=== PATIENT | female | born 1955 | race Caucasian/White ===

== ENCOUNTER → 2017-09-30 | Day surgery (SDC) | payer OTHER ==
[~2017-09-30] MED LIST: LIDOCAINE 1% PF 2 ML VIAL. ID; LIDOCAINE 2% 100 MG/5 ML SYRINGE.; MIDAZOLAM HCL/PF 2 MG/2 ML VIAL. IV; PROPOFOL 40 ML IV; fentaNYL PF VIAL 100 MCG/2 ML VIAL IV
[2017-09-30] MEDS: IV RINGERS,LACTATED 1000ML 1,000 ML IV (07:53)
== END | disposition home or self-care (01) ==
LOC: SURG 07:19
DX: Z09 Encounter for follow-up examination after completed treatment for conditions other than malignant neoplasm (principal); D12.0 Benign neoplasm of cecum; K57.30 Diverticulosis of large intestine without perforation or abscess without bleeding; K64.0 First degree hemorrhoids; Z86.010 Personal history of colon polyps; Z98.51 Tubal ligation status; Z79.82 Long term (current) use of aspirin; I10 Essential (primary) hypertension
CPT/HCPCS: 45385; 88305; J2704

== ENCOUNTER → 2018-12-10 | Outpatient (CLI) | payer OTHER ==
[2017-09-30 08:50] VITALS: BP 128/74
[~2018-12-10] MED LIST changes: +ASPI-630 PO; +ESOM40CA PO; +HYDR12.575 PO; -LIDOCAINE 1% PF 2 ML VIAL. ID; -LIDOCAINE 2% 100 MG/5 ML SYRINGE.; -MIDAZOLAM HCL/PF 2 MG/2 ML VIAL. IV; -PROPOFOL 40 ML IV; +QUIN40TA16 PO; -fentaNYL PF VIAL 100 MCG/2 ML VIAL IV
--- NOTE | 2018-12-10 12:37 | KCIC ---
MRI Lumbar Spine without contrast History: Sciatica, left hip pain, tingling in the left leg after activity Technique: Multiplanar, multi sequential noncontrast MR imaging was performed of the lumbar spine. Comparison: None Findings: Lumbar vertebral body stature is mostly preserved other than multilevel Schmorl's nodes. There is grade 1 posterior subluxation L5 relative S1 grade 1 anterior spondylolisthesis L4-L5. Conus terminates at L1. There is advanced degenerative disc disease at L5-S1, moderate degenerative disc disease at L4-5, minimally at more superior levels. There is also degenerative disc disease of visualized inferior thoracic levels. There is endplate edema at L5-S1 and minimally at L4-5, L3-4, and L2-3 of visualized inferior thoracic levels at T12 and T11, and also superiorly of L2 probably reactive/degenerative in etiology. Not included on the axial images, facet degenerative change contributes to likely at least mild posterior narrowing of the bilateral T11-12 and T10-11 neural foramina. L1-L2: This level was not included on the axial images. There is negligible bulge. Spinal canal and neural foramina are adequate. L2-L3: Neural foramina and spinal canal are adequate. L3-L4: There is mild facet degenerative change and buckling of the ligamentum flavum. There is negligible bulge. Neural foramina and spinal canal are overall adequate. L4-L5: There is severe facet degenerative change, prominent fluid in the facet articulations bilaterally. There is moderate buckling of the ligamentum flavum. There is mild partial uncovering of the posterior aspect of the disc due to spondylolisthesis, superimposed shallow bulge and central protrusion. Combination of findings results in fairly severe spinal stenosis with limited preserved subarachnoid space, lateral recess stenosis bilaterally with contact of the descending L5 nerve roots lateral recesses. There is mild right greater than left neural foramina compromise. L5-S1: There is moderate facet degenerative change. There is minimal disc osteophyte complex and bulge/protrusion superimposed on the posteriorly subluxed L5 vertebral body margin, contact of the ventral surfaces of the descending S1 nerve roots bilaterally greater on the left. There is fairly severe neural foramina compromise bilaterally due to facet hypertrophic change and disc osteophyte complex with contact exiting L5 nerve roots. Impression: 1. There is fairly severe spinal stenosis L4-5. There is disc osteophyte complex and superimposed bulge/protrusion superimposed on the posteriorly subluxed L5 vertebral body margin at L5-S1 which contacts the descending S1 nerve roots greater on the left. 2. There is advanced degenerative disc disease at L5-S1, to lesser degree L4-5, minimally at more superior lumbar levels and also degenerative disc disease of visualized inferior thoracic levels. There is multilevel variable endplate edema likely reactive/degenerative in etiology. 3. There is fairly severe neural foramina compromise bilaterally at L5-S1 with contact of the exiting L5 nerve roots. 4. There is grade 1 anterior spondylolisthesis at L4-5 and minimal posterior subluxation L5 relative to S1. There is multilevel facet degenerative change greatest at L4-5. Electronically signed by: Edwar Tenorio MD (12/10/2018 12:35 PM) [id number]
== END | disposition home or self-care (01) ==
LOC: KCIC MRI 10:26
PROVIDERS: ATTEND Chiropractor
DX: M51.37 Other intervertebral disc degeneration, lumbosacral region (principal); M48.07 Spinal stenosis, lumbosacral region; M51.46 Schmorl's nodes, lumbar region; M43.17 Spondylolisthesis, lumbosacral region; M25.78 Osteophyte, vertebrae; M53.2X7 Spinal instabilities, lumbosacral region
CPT/HCPCS: 72148

== ENCOUNTER → 2019-02-02 | Outpatient (CLI) | payer OTHER ==
[2017-09-30 08:50] VITALS: BP 128/74
--- NOTE | 2019-02-02 17:17 | KCIC ---
LUMBAR SPINE 2-3V History: Spondylolisthesis, back pain Comparison: November 17, 2018 Findings: 3 views of the lumbar spine to include neutral as well as flexion and extension lateral radiographs are submitted. There is again advanced degenerative disc disease with vacuum phenomenon at L5-S1. Lumbar vertebral body stature is adequate. There is grade 1 anterior spondylolisthesis at L4-L5 somewhat accentuated with flexion. There is negligible posterior subluxation of L2 relative to L3 created with extension. There is overall mild degenerative disc disease at L4-L5 and L2-3. There is atherosclerotic calcification of the abdominal aorta. There is facet degenerative change greater inferiorly of the lumbar spine. Impression: 1. There is again advanced degenerative disc disease L5-S1. 2. There is grade 1 anterior spondylolisthesis at L4-5 somewhat accentuated with flexion and negligible posterior subluxation L2 relative to L3 created with extension. There is multilevel lumbar facet degenerative change greater inferiorly. Electronically signed by: Edwar Tenorio MD (02/02/2019 5:14 PM) [email or web address]
== END | disposition home or self-care (01) ==
LOC: KCIC 11:01
PROVIDERS: ATTEND Neurological Surgery
DX: M43.16 Spondylolisthesis, lumbar region (principal); M51.37 Other intervertebral disc degeneration, lumbosacral region; M47.816 Spondylosis without myelopathy or radiculopathy, lumbar region; I70.0 Atherosclerosis of aorta
CPT/HCPCS: 72100

== ENCOUNTER → 2019-03-07 | Outpatient (CLI) | payer OTHER ==
[2017-09-30 08:50] VITALS: BP 128/74
[~2019-03-07] MED LIST changes: +ASCO10002 PO; +CALC-98 PO; +CYCL10TA2 PO; +ESCITALOPRAM OX10 MG PO; +GLUC-142 PO; +LACT1CAP29 PO; +MULT-245 PO; +MV,C400T2 PO; +OMEG1CAP6 PO; +VITA400C6 PO
--- NOTE | 2019-03-07 15:30 | EKG ---
[facility] [address] [place] [address] Test Date: 2019-03-07 Test Time: 15:22:23 Pat Name: GUEVARA MÉNDEZ Department: Room: Gender: F Utility Worker Production: JONNY : 1955 Requested By: JACQUES HOOKER Order Number: [id number] Reading MD: Tylor Purcell Measurements Intervals [place] Rate: 80 P: 29 CA: 170 QRS: 17 QRSD: 88 T: 37 QT: 386 QTc: 449 Interpretive Statements SINUS RHYTHM NONSPECIFIC ST-T WAVE CHANGES Q WAVE IN V1 Electronically Signed On 03-08-2019 11:09:52 CDT by Tylor Purcell
[2019-03-07 15:34] LABS: BASO # 0.1 x10^3/uL (0.0-0.2); BASO % 1 % (0-3); EOS # 0.2 x10^3/uL (0.0-0.7); EOS % 2 % (0-3); HEMATOCRIT 42.3 % (36.0-47.0); HEMOGLOBIN 14.3 g/dL (12.0-15.5); LYMPH # 2.3 x10^3/uL (1.0-4.8); LYMPH % 26 % (24-48); MEAN CORPUSCULAR HEMOGLOBIN 30 pg (25-35); MEAN CORPUSCULAR HGB CONC 34 g/dL (31-37); MEAN CORPUSCULAR VOLUME 89 fL (79-100); MONO # 0.7 x10^3/uL (0.0-1.1); MONO % 7 % (0-9); NEUT # 5.8 x10^3/uL (1.8-7.7); NEUT % 65 % (31-73); PLATELET COUNT 254 x10^3/uL (140-400); RED BLOOD COUNT 4.77 x10^6/uL (3.50-5.40); RED CELL DISTRIBUTION WIDTH 14.6 % (11.5-14.5)
[2019-03-07 15:57] LABS: ALBUMIN 3.7 g/dL (3.4-5.0); ALBUMIN/GLOBULIN RATIO 1.1 (1.0-1.7); CALCIUM 9.1 mg/dL (8.5-10.1); CREATININE 0.6 mg/dL (0.6-1.0); POTASSIUM 3.8 mmol/L (3.5-5.1); TOTAL BILIRUBIN 0.2 mg/dL (0.2-1.0)
[2019-03-07 16:06] LABS: PROTHROMBIN TIME PATIENT 11.9 SEC (11.7-14.0)
== END | disposition home or self-care (01) ==
LOC: SURGPAT 13:20
PROVIDERS: ATTEND Neurological Surgery
DX: Z01.818 Encounter for other preprocedural examination (principal); M43.16 Spondylolisthesis, lumbar region; M48.062 Spinal stenosis, lumbar region with neurogenic claudication; M54.16 Radiculopathy, lumbar region
CPT/HCPCS: 36415; 80053; 85025; 85610; 85730; 87641; 93005

== ENCOUNTER 2019-03-17 10:30 | Inpatient (IN) | payer OTHER ==
--- NOTE | 2019-03-16 13:37 | HP ---
ADMIT DATE: 03/31/2019 PREOPERATIVE HISTORY AND PHYSICAL DATE OF SURGERY: 03/31/2019. HISTORY OF PRESENT ILLNESS: The patient is a pleasant 63-year-old who has problems with low back pain and pain which radiates into her left buttock and posterolateral leg. She notes some numb sensations in her left foot, which she describes as pins and needles sensation. The problem became significant after a fall in 2007. She rates her pain as 4-5/10. Standing and walking increase her pain. Sitting and lying down help her. She says she has been gradually spending more and more time sitting because when she stands she develops significant pain. She had chiropractic treatment as well as physical therapy exercises, which was not helpful for her. She has been through acupuncture without benefit. PAST MEDICAL HISTORY: Chest pain, cold sores or fever blisters, hypertension, psychiatric care, tonsillitis. PAST SURGICAL HISTORY: Tonsillectomy in 1974, eye surgery in 1994, tubal ligation in 1994, carpal tunnel release in 2003, left shoulder surgery in 2005, and cataract in 2012. FAMILY HISTORY: Alzheimer disease, cancer, diabetes, heart problems and disease, hypertension, migraine headaches, and spine problems. SOCIAL HISTORY: Retired. . Exercises rarely. Denies substance abuse. Smokes 1/4-1/2 of a pack per day and has for 40 years. Drinks alcohol 1-2 times per week. Drinks coffee, soda and tea daily. ALLERGIES: No known drug allergies. CURRENT MEDICATIONS: Quinapril, hydrochlorothiazide, omeprazole, escitalopram oxalate, fish oil, Osteo Bi-Flex Regular strength, calcium with D, vitamin C, vitamin E, Estroven energy max strength, baby aspirin, and allergy shots. REVIEW OF SYSTEMS: A 12-point review of systems was obtained and is noncontributory except for that mentioned above. PHYSICAL EXAMINATION: NEUROSURGERY EXAMINATION: GENERAL APPEARANCE: Alert, pleasant, no acute distress. HEAD: Normocephalic, atraumatic. SKIN: Warm and dry. MUSCULOSKELETAL: Lumbar paraspinal muscle bulk is normal, restricted range of motion of the lumbar spine, [id number] tenderness of lower lumbar spine with palpation, normal range of motion of the lower extremities bilaterally. EXTREMITIES: No clubbing, cyanosis or edema. NEUROLOGIC: Alert and oriented x 3, normal recent and remote memory. Strength 5/5 in bilateral lower extremities, sensory was intact to light touch in bilateral lower extremities, reflexes were present and symmetric in lower extremities bilaterally, negative straight leg raising bilaterally, normal gait. IMAGING: I reviewed a lumbar MRI scan. On that study, there is severe spinal stenosis at L4-L5. There is also a small grade 1 anterolisthesis at L4-L5. She does have some changes with stenosis at L5-S1, but these are vastly overshadowed by the problems at L4-L5. ASSESSMENT/PLAN: After reviewing lumbar flexion and extension x-rays, I have noted that there is some motion with flexion and extension, then I recommend in addition to lumbar decompressive surgery, lumbar instrumented fusion with interbody fusion cage and posterior instrumentation. I did discuss this with her at her appointment. I reviewed the surgery and the risks and expected postoperative course. She does not have any further questions. She would like to proceed with surgery. We will make the arrangements. JACQUES HOOKER MD DR: PORSHA/lisbeth JOB#: [id number] / [id number] BENSON
[~2019-03-17] VITALS: Ht 165.1 cm; Wt 77.1 kg
[~2019-03-17 10:30] MED LIST changes: +BACITRACIN 50,000 UNIT in IV NORMAL SALINE 1000ML BAG 1,000 ML IRR ONE; +BUPIVACAINE-EPI 0.5%-1:200000 MPF 30 ML VIAL. INJ ONE; +HYDROmorphone 2 MG/ML VIAL IV PRN; +IV RINGERS,LACTATED 1000ML 1,000 ML IV SCH; +LIDOCAINE 1% PF 2 ML VIAL. ID PRN; +MORPHINE SULFATE 2 MG/ML VIAL. IV PRN; +ONDANSETRON PF 4 MG/2 ML VIAL. IV PRN; +PROCHLORPERAZINE 10 MG/2 ML VIAL. IV PRN; +fentaNYL PF VIAL 100 MCG/2 ML VIAL IV PRN
[2019-03-31] MEDS ORDERED: BACITRACIN 50,000 UNIT in IV NORMAL SALINE 1000ML BAG 1,000 ML IRR ONE (06:00)
[2019-03-31] MEDS ORDERED: BUPIVACAINE-EPI 0.5%-1:200000 MPF 30 ML VIAL. INJ ONE (06:30)
[2019-03-31] MEDS ORDERED: PROCHLORPERAZINE 10 MG/2 ML VIAL. IV PRN (07:00)
[2019-03-31] MEDS ORDERED: IV RINGERS,LACTATED 1000ML 1,000 ML IV SCH (07:00)
[2019-03-31] MEDS ORDERED: HYDROmorphone 2 MG/ML VIAL IV PRN (07:00)
[2019-03-31] MEDS ORDERED: LIDOCAINE 1% PF 2 ML VIAL. ID PRN (07:00)
[2019-03-31] MEDS ORDERED: fentaNYL PF VIAL 100 MCG/2 ML VIAL IV PRN ×2 (07:00→13:15)
[2019-03-31] MEDS ORDERED: MORPHINE SULFATE 2 MG/ML VIAL. IV PRN (07:00)
[2019-03-31] MEDS ORDERED: ONDANSETRON PF 4 MG/2 ML VIAL. IV PRN (07:00)
[2019-03-31] MEDS ORDERED: THROMBIN TOPICAL 20,000 UNIT SPRAY.SYRN KIT TP ONE (07:14)
[2019-03-31] MEDS ORDERED: KETOROLAC 60 MG/2 ML INJ FOR OR. ONE (07:14)
[2019-03-31] MEDS ORDERED: GELATIN SPONGE SIZE 100. ONE (07:14)
[2019-03-31] MEDS ORDERED: ceFAZolin 2GM PREMIX 2 GM/50 ML BAG IV ONE (10:00)
[2019-03-31] MEDS ORDERED: PROPOFOL 100 ML IV ONE (10:05)
[2019-03-31] MEDS ORDERED: fentaNYL PF VIAL 100 MCG/2 ML VIAL ONE (10:12)
[2019-03-31] MEDS ORDERED: GLYCOPYRROLATE 1 MG/5 ML VIAL. ONE (10:12)
[2019-03-31] MEDS ORDERED: ROCURONIUM 50 MG/5 ML VIAL. ONE (10:12)
[2019-03-31] MEDS ORDERED: REMIFENTANIL 2 MG VIAL. IV ONE (10:12)
[2019-03-31] MEDS ORDERED: NEOSTIGMINE METHYLSULFATE 5 MG/5 ML SYRINGE. ONE (10:12)
[2019-03-31] MEDS ORDERED: MIDAZOLAM HCL/PF 2 MG/2 ML VIAL. ONE (10:12)
[2019-03-31] MEDS ORDERED: PROPOFOL 20 ML IV ONE ×2 (10:13→16:20)
[2019-03-31] MEDS ORDERED: PHENYLEPHRINE 10 MG/ML VIAL. ONE (10:13)
[2019-03-31] MEDS ORDERED: LIDOCAINE 2% PF 5 ML VIAL. ONE (10:13)
[2019-03-31] MEDS ORDERED: ONDANSETRON PF 4 MG/2 ML VIAL. ONE (10:13)
[2019-03-31] MEDS ORDERED: DEXAMETHASONE SOD PHOS 4 MG/ML VIAL ONE (10:13)
--- NOTE | 2019-03-31 12:38 | RAD ---
EXAM: CT lumbar spine without IV contrast CLINICAL HISTORY: Lumbar stenosis, [facility] protocol COMPARISON: None available. TECHNIQUE: Helical CT was performed through the lumbar spine. Axial, coronal and sagittal reformatted images were generated. PQRS compliance statement - One or more of the following individualized dose reduction techniques were utilized for this study: 1. Automated exposure control 2. Adjustment of the mA and/or kV according to patient size 3. Use of iterative reconstruction technique FINDINGS: For the purposes of this report there are 5 nonrib-bearing lumbar-type vertebral bodies. Vertebral heights are preserved. No evidence for acute fracture. Moderate T11-12, T12-L1, mild L4-5 and severe L5-S1 disc height loss. Straightening of the normal lumbar lordosis. Retrolisthesis of L5 on S1 measures 4 mm. Trace anterolisthesis of L4 on L5. Advanced facet degenerative changes at L2-3 and below. Vascular calcifications are seen. A 2 cm right adrenal nodule measures 0-5 Hounsfield units consistent with adrenal adenoma. Colonic diverticulosis without evidence for acute diverticulitis. T12-L1: Generalized disc bulge and ligamentum flavum hypertrophy and facet degenerative changes results in mild central canal stenosis without significant neural foraminal narrowing. L1-L2: Generalized disc bulge with ligamentum flavum hypertrophy and facet degenerative changes results in mild central canal stenosis without significant neural foraminal narrowing. L2-L3: Generalized disc bulge results in mild flattening of the ventral central canal with mild to moderate central canal stenosis and mild bilateral neural foraminal narrowing. L3-L4: Generalized disc bulge with ligamentum flavum hypertrophy and facet degenerative changes with mildly prominent epidural fat results in moderate central canal stenosis with thecal sac measuring approximately 8 mm in AP dimension with mild bilateral neural foraminal narrowing. L4-L5: Trace anterolisthesis of L4 on L5 with facet degenerative changes, ligamentum flavum hypertrophy no significant neural foraminal narrowing. L5-S1: Severe central canal stenosis with ligamentum flavum hypertrophy and facet degenerative changes results in moderate central canal stenosis and moderate to severe neural foraminal narrowing. IMPRESSION: 1. Multilevel degenerative changes of the lumbar spine most prominent at L4-5 and L5-S1. 2. No evidence for acute fracture. 3. Retrolisthesis of L5 on S1. Trace anterolisthesis of L4 on L5. Electronically signed by: Tao Nevarez MD (03/31/2019 12:35 PM) [facility]
[2019-03-31] MEDS ORDERED: MAGNESIUM HYDROXIDE 2,400 MG/30 ML ORAL.SUSP. PO PRN (13:15)
[2019-03-31] MEDS ORDERED: METHOCARBAMOL 750 MG TABLET PO PRN (13:15)
[2019-03-31] MEDS ORDERED: 0.9 % SODIUM CHLORIDE 10 ML DISP.SYRIN. IV PRN (13:15)
[2019-03-31] MEDS ORDERED: ACETAMINOPHEN 325 MG TABLET. PO PRN (13:15)
[2019-03-31] MEDS ORDERED: diphenhydrAMINE HCL 25 MG CAPSULE PO PRN (13:15)
[2019-03-31] MEDS ORDERED: CALCIUM CARBONATE 500 MG TAB.CHEW PO PRN (13:15)
[2019-03-31] MEDS ORDERED: MAG HYDROX/ALUMINUM HYD/SIMETH 30 ML ORAL.SUSP PO PRN (13:15)
[2019-03-31] MEDS ORDERED: NALOXONE 0.4 MG/ML VIAL. IV PRN ×2 (13:15)
[2019-03-31] MEDS ORDERED: REMIFENTANIL 1 MG VIAL. IV ONE (15:39)
[2019-03-31] MEDS ORDERED: ceFAZolin SODIUM 1 GM VIAL ONE ×2 (15:59→16:00)
[2019-03-31] MEDS: fentaNYL PF VIAL 100 MCG/2 ML VIAL IV PRN ×2 (17:44→18:14)
[2019-03-31] MEDS ORDERED: MORPHINE SULFATE 4 MG/ML VIAL. ONE (18:18)
[2019-03-31] MEDS ORDERED: MORPHINE SULFATE 4 MG/ML VIAL. IV PRN (18:30)
[2019-03-31 19:00] VITALS: BP 123/81
--- NOTE | 2019-03-31 19:02 | NUR ---
Admit from PACU s/p lumbar lami/instrumentation L4-L5. Pt A&O, PRAJAPATI, c/o tingling in left toes. 2 surgical dressings w/ small amount bloody drainage present. Has red skin irritation across chest, cold gel pack applied. Also has ice pack on left shoulder for chronic pain issues. Family at bedside, call light in reach.
[2019-03-31 19:15] VITALS: BP 126/79
[2019-03-31 19:30] VITALS: BP 121/77
[2019-03-31 21:00] VITALS: BP 114/79
[2019-03-31] MEDS: DOCUSATE SODIUM 100 MG CAPSULE. PO SCH (21:20)
[2019-03-31] MEDS: oxyCODONE/APAP 5/325 1 TAB TABLET PO PRN (21:20)
[2019-03-31] MEDS: POTASSIUM CL 20MEQ D5-0.45NACL 1,000 ML IV SCH (21:20)
[2019-03-31 23:00] VITALS: BP 129/86
[2019-04-01] MEDS: ceFAZolin SODIUM IV Push 1 GM VIAL. IVP SCH ×3 (00:06→15:41)
[2019-04-01] MEDS: POTASSIUM CL 20MEQ D5-0.45NACL 1,000 ML IV SCH ×3 (02:27→22:37)
[2019-04-01 03:00] VITALS: BP 138/76
[2019-04-01] MEDS: oxyCODONE/APAP 5/325 1 TAB TABLET PO PRN ×6 (03:15→21:32)
[2019-04-01 07:11] VITALS: BP 122/74
[2019-04-01] MEDS: PANTOPRAZOLE 40 MG TABLET.DR. PO SCH (07:31)
[2019-04-01] MEDS: CITALOPRAM 20 MG TABLET. PO SCH (08:54)
[2019-04-01] MEDS: ASPIRIN CHEWABLE 81 MG TABLET. PO SCH (08:54)
[2019-04-01] MEDS: hydroCHLOROthiazide 12.5 MG CAPSULE PO SCH (08:54)
[2019-04-01] MEDS: LACTOBACILLUS RHAMNOSUS GG 1 CAPSULE. PO SCH (08:54)
[2019-04-01] MEDS: DOCUSATE SODIUM 100 MG CAPSULE. PO SCH ×2 (08:54→21:31)
[2019-04-01] MEDS: MULTIVITAMIN with MINERAL TABLET. PO SCH (08:54)
[2019-04-01] MEDS: ASCORBIC ACID 500 MG TABLET PO SCH (08:55)
[2019-04-01] MEDS ORDERED: [UNRECOGNIZED DRUG - REMARK] PO SCH (09:00)
[2019-04-01] MEDS: VITAMIN E 200 UNIT CAPSULE. PO SCH ×2 (09:00→12:55)
[2019-04-01] MEDS ORDERED: NON FORMULARY ITEM (Glucosamine/D3/Boswellia Serra (Osteo Bi-Flex Tablet) 1 EACH) PO SCH (09:00)
[2019-04-01] MEDS ORDERED: CALCIUM CARB/VIT D3 500/200 TABLET. PO SCH (09:00)
[2019-04-01] MEDS: LISINOPRIL 20 MG TABLET PO SCH (09:22)
--- NOTE | 2019-04-01 11:19 | PDOC ---
PROGRESS NOTES Subjective Subjective POD #1 Incisional pain, controlled with medication Objective Objective Vital Signs Date Time Temp Pulse Resp B/P (MAP) Pulse Ox O2 Delivery O2 Flow Rate FiO2 04/01/19 09:22 90 134/91 04/01/19 08:59 20 Room Air 04/01/19 07:11 98.5 94 98.5 03/31/19 23:00 2.0 Intake and Output 04/01/19 06:59 Intake Total 3234 ml Output Total 400 ml Balance 2834 ml Intake Oral 1030 ml IV Total 1400 ml Blood Product IV Normal Saline Flush 804 ml Output Urine Total 300 ml Estimated Blood Loss 100 ml # Voids 1 Physical Exam General: Alert, Oriented X3, Cooperative MUSCULOSKELETAL: Other (PRAJAPATI) Neuro: Normal speech Skin: Other (Dressing C,D,I) Plan Plan of Care PT LSO Encouraged increased activity as tolerated Comment Review of Relevant I have reviewed the following items emely (where applicable) has been applied. Medications Current Medications Bacitracin 96416 unit/Sodium Chloride 1,000 ml @ 1,000 mls/hr 1X ONCE IRR ; Start 03/17/19 at 06:00; Stop 03/17/19 at 06:59; Status DC Bupivacaine HCl/ Epinephrine Bitart (Sensorcain-Mpf Epi 0.5%-1:651345) 30 ml 1X ONCE INJ ; Start 03/17/19 at 06:30; Stop 03/17/19 at 06:31; Status DC Ondansetron HCl (Zofran) 4 mg PRN Q6HRS PRN IV NAUSEA/VOMITING; Start 03/17/19 at 07:00; Stop 03/18/19 at 06:59; Status DC Fentanyl Citrate (Fentanyl 2ml Vial) 25 mcg PRN Q5MIN PRN IV MILD PAIN 1-3; Start 03/17/19 at 07:00; Stop 03/18/19 at 06:59; Status DC Fentanyl Citrate (Fentanyl 2ml Vial) 50 mcg PRN Q5MIN PRN IV MODERATE TO SEVERE PAIN; Start 03/17/19 at 07:00; Stop 03/18/19 at 06:59; Status DC Morphine Sulfate (Morphine Sulfate) 1 mg PRN Q10MIN PRN IV SEVERE PAIN 7-10; Start 03/17/19 at 07:00; Stop 03/18/19 at 06:59; Status DC Ringer's Solution 1,000 ml @ 30 mls/hr Q24H IV ; Start 03/17/19 at 07:00; Stop 03/17/19 at 18:59; Status DC Lidocaine HCl (Xylocaine-Mpf 1% 2ml Vial) 2 ml PRN 1X PRN ID PRIOR TO IV START; Start 03/17/19 at 07:00; Stop 03/18/19 at 06:59; Status DC Hydromorphone HCl (Dilaudid) 0.5 mg PRN Q10MIN PRN IV SEV PAIN, Second choice; Start 03/17/19 at 07:00; Stop 03/18/19 at 06:59; Status DC Prochlorperazine Edisylate (Compazine) 5 mg PACU PRN PRN IV NAUSEA, MRX1; Start 03/17/19 at 07:00; Stop 03/18/19 at 06:59; Status DC Cefazolin Sodium/ Dextrose 50 ml @ 100 mls/hr 1X PREOP PRN IV PRIOR TO PROCEDURE; Start 03/17/19 at 06:00; Stop 03/17/19 at 18:00; Status DC Bacitracin 97539 unit/Sodium Chloride 1,000 ml @ 1,000 mls/hr 1X ONCE IRR Last administered on 03/31/19at 13:32; Start 03/31/19 at 06:00; Stop 03/31/19 at 06:59; Status DC Bupivacaine HCl/ Epinephrine Bitart (Sensorcain-Epi 0.5%-1:411589 Mpf) 30 ml 1X ONCE INJ Last administered on 03/31/19at 13:32; Start 03/31/19 at 06:30; Stop 03/31/19 at 06:31; Status DC Ondansetron HCl (Zofran) 4 mg PRN Q6HRS PRN IV NAUSEA/VOMITING; Start 03/31/19 at 07:00; Stop 04/01/19 at 06:59; Status DC Fentanyl Citrate (Fentanyl 2ml Vial) 25 mcg PRN Q5MIN PRN IV MILD PAIN 1-3; Start 03/31/19 at 07:00; Stop 04/01/19 at 06:59; Status DC Fentanyl Citrate (Fentanyl 2ml Vial) 50 mcg PRN Q5MIN PRN IV MODERATE TO SEVERE PAIN Last administered on 03/31/19at 18:14; Start 03/31/19 at 07:00; Stop 04/01/19 at 06:59; Status DC Morphine Sulfate (Morphine Sulfate) 1 mg PRN Q10MIN PRN IV SEVERE PAIN 7-10; Start 03/31/19 at 07:00; Stop 04/01/19 at 06:59; Status DC Ringer's Solution 1,000 ml @ 30 mls/hr Q24H IV Last administered on 03/31/19at 08:38; Start 03/31/19 at 07:00; Stop 03/31/19 at 18:59; Status DC Lidocaine HCl (Xylocaine-Mpf 1% 2ml Vial) 2 ml PRN 1X PRN ID PRIOR TO IV START; Start 03/31/19 at 07:00; Stop 04/01/19 at 06:59; Status DC Hydromorphone HCl (Dilaudid) 0.5 mg PRN Q10MIN PRN IV SEV PAIN, Second choice; Start 03/31/19 at 07:00; Stop 04/01/19 at 06:59; Status DC Prochlorperazine Edisylate (Compazine) 5 mg PACU PRN PRN IV NAUSEA, MRX1; Start 03/31/19 at 07:00; Stop 04/01/19 at 06:59; Status DC Cefazolin Sodium/ Dextrose 50 ml @ 100 mls/hr 1X PREOP PRN IV PRIOR TO PROCEDURE; Start 03/31/19 at 06:00; Stop 03/31/19 at 18:00; Status DC Gelatin (Gelfoam Size 100) 1 each STK-MED ONCE .ROUTE Last administered on 03/31/19at 13:32; Start 03/31/19 at 07:14; Stop 03/31/19 at 07:14; Status DC Ketorolac Tromethamine (Toradol For Or Only) 60 mg STK-MED ONCE .ROUTE Last administered on 03/31/19at 13:32; Start 03/31/19 at 07:14; Stop 03/31/19 at 07:14; Status DC Thrombin 20,000 unit STK-MED ONCE TP Last administered on 03/31/19at 13:32; Start 03/31/19 at 07:14; Stop 03/31/19 at 07:15; Status DC Propofol 100 ml @ As Directed STK-MED ONCE IV ; Start 03/31/19 at 10:05; Stop 03/31/19 at 10:05; Status DC Glycopyrrolate (Robinul) 1 mg STK-MED ONCE .ROUTE ; Start 03/31/19 at 10:12; Stop 03/31/19 at 10:12; Status DC Fentanyl Citrate (Fentanyl 2ml Vial) 100 mcg STK-MED ONCE .ROUTE ; Start 03/31/19 at 10:12; Stop 03/31/19 at 10:12; Status DC Rocuronium [place] (Zemuron) 50 mg STK-MED ONCE .ROUTE ; Start 03/31/19 at 10:12; Stop 03/31/19 at 10:12; Status DC Neostigmine Methylsulfate (Neostigmine Methylsulfate) 5 mg STK-MED ONCE .ROUTE ; Start 03/31/19 at 10:12; Stop 03/31/19 at 10:12; Status DC Remifentanil HCl (Ultiva) 2 mg STK-MED ONCE IV ; Start 03/31/19 at 10:12; Stop 03/31/19 at 10:13; Status DC Midazolam HCl (Versed) 2 mg STK-MED ONCE .ROUTE ; Start 03/31/19 at 10:12; Stop 03/31/19 at 10:13; Status DC Phenylephrine HCl (Bernard-Synephrine Inj) 10 mg STK-MED ONCE .ROUTE ; Start 03/31/19 at 10:13; Stop 03/31/19 at 10:13; Status DC Dexamethasone Sodium Phosphate (Decadron) 4 mg STK-MED ONCE .ROUTE ; Start 03/31/19 at 10:13; Stop 03/31/19 at 10:13; Status DC Propofol 20 ml @ As Directed STK-MED ONCE IV ; Start 03/31/19 at 10:13; Stop 03/31/19 at 10:14; Status DC Lidocaine HCl (Lidocaine Pf 2% Vial) 5 ml STK-MED ONCE .ROUTE ; Start 03/31/19 at 10:13; Stop 03/31/19 at 10:14; Status DC Ondansetron HCl (Zofran) 4 mg STK-MED ONCE .ROUTE ; Start 03/31/19 at 10:13; Stop 03/31/19 at 10:14; Status DC Aspirin (Children'S Aspirin) 81 mg DAILY PO Last administered on 04/01/19 08:59; Start 04/01/19 at 09:00 Hydrochlorothiazide (Microzide) 12.5 mg DAILY PO Last administered on 04/01/19at 08:59; Start 04/01/19 at 09:00 Ascorbic Acid (Vitamin C) 1,000 mg DAILY PO Last administered on 04/01/19 08:59; Start 04/01/19 at 09:00 Calcium/Vitamin D (Oscal D 500mg/ 200uts) 1 tab QODAY PO Last administered on 04/01/19 08:59; Start 04/01/19 at 09:00 Citalopram Hydrobromide (CeleXA) 20 mg DAILY PO Last administered on 04/01/19 08:59; Start 04/01/19 at 09:00 Pantoprazole Sodium (Protonix) 40 mg DAILYAC PO Last administered on 04/01/19at 07:32; Start 04/01/19 at 07:30 Non-Formulary Medication (Glucosamine/D3/ Boswellia Marcia (Osteo Bi-Flex Tablet)) 1 each DAILY PO ; Start 04/01/19 at 09:00; Status UNV Lactobacillus Rhamnosus (Culturelle) 1 cap DAILY PO Last administered on 04/01/19at 08:59; Start 04/01/19 at 09:00 Multivitamins (Thera M Plus) 1 tab DAILY PO Last administered on 04/01/19at 08:59; Start 04/01/19 at 09:00 Non-Formulary Medication (Mv,Ca,Min/Fa/ Herbal No.157 (Estroven Max Strength Caplet)) 400 mcg DAILY PO ; Start 04/01/19 at 09:00; Stop 03/31/19 at 16:57; Status DC Lisinopril (Prinivil) 40 mg DAILY PO Last administered on 04/01/19at 09:22; Start 04/01/19 at 09:00 Vitamin E 400 unit DAILY PO ; Start 04/01/19 at 09:00 Fentanyl Citrate (Fentanyl 2ml Vial) 50 mcg PRN Q2HR PRN IV PAIN; Start 03/31/19 at 13:15 Acetaminophen (Tylenol) 650 mg PRN Q6HRS PRN PO MILD PAIN / TEMP; Start 03/31/19 at 13:15 Al Hydroxide/Mg Hydroxide (Mylanta Plus Xs) 30 ml PRN Q3HRS PRN PO HEARTBURN / GAS; Start 03/31/19 at 13:15 Calcium Carbonate/ Glycine (Tums) 500 mg PRN Q3HRS PRN PO INDIGESTION; Start 03/31/19 at 13:15 Diphenhydramine HCl (Benadryl) 25 mg PRN Q6HRS PRN PO ITCHING; Start 03/31/19 at 13:15 Naloxone HCl (Narcan) 0.1 mg PRN Q2MIN PRN IV ADMIN; Start 03/31/19 at 13:15 Sodium Chloride (Normal Saline Flush) 3 ml QSHIFT PRN IV AFTER MEDS AND BLOOD DRAWS; Start 03/31/19 at 13:15 Potassium Chloride/Dextrose/ Sod Cl 1,000 ml @ 75 mls/hr [id number] IV Last admi nistered on 03/31/19at 21:20; Start 03/31/19 at 13:07 Naloxone HCl (Narcan) 0.4 mg PRN Q2MIN PRN IV SEE INSTRUCTIONS; Start 03/31/19 at 13:15 Oxycodone/ Acetaminophen (Percocet 5/325) 1 tab PRN Q4HRS PRN PO MILD PAIN, 1ST CHOICE Last administered on 04/01/19at 09:34; Start 03/31/19 at 13:15 Oxycodone/ Acetaminophen (Percocet 5/325) 2 tab PRN Q4HRS PRN PO MODERATE PAIN, SEVERE PAIN; Start 03/31/19 at 13:15 Methocarbamol (Robaxin) 750 mg PRN TID PRN PO MUSCLE SPASMS; Start 03/31/19 at 13:15 Docusate Sodium (Colace) 100 mg BID PO Last administered on 04/01/19at 08:59; Start 03/31/19 at 21:00 Magnesium Hydroxide (Milk Of Magnesia) 2,400 mg PRN Q12HR PRN PO CONSTIPATION; Start 03/31/19 at 13:15 Cefazolin Sodium (Ancef) 1 gm Q8H IVP Last administered on 04/01/19at 08:59; Start 04/01/19 at 00:00; Stop 04/01/19 at 16:01 Remifentanil HCl (Ultiva) 1 mg STK-MED ONCE IV ; Start 03/31/19 at 15:39; Stop 03/31/19 at 15:39; Status DC Cefazolin Sodium (Ancef) 1 gm STK-MED ONCE .ROUTE ; Start 03/31/19 at 15:59; Stop 03/31/19 at 16:00; Status DC Cefazolin Sodium (Ancef) 1 gm STK-MED ONCE .ROUTE ; Start 03/31/19 at 16:00; Stop 03/31/19 at 16:00; Status DC Propofol 20 ml @ As Directed STK-MED ONCE IV ; Start 03/31/19 at 16:20; Stop 03/31/19 at 16:20; Status DC Morphine Sulfate (Morphine Sulfate) 4 mg STK-MED ONCE .ROUTE ; Start 03/31/19 at 18:18; Stop 03/31/19 at 18:18; Status DC Morphine Sulfate (Morphine Sulfate) 4 mg PRN Q10MIN PRN IV pain Last administered on 03/31/19at 18:33; Start 03/31/19 at 18:30 Active Scripts Active Reported Estroven Max Strength Caplet (Mv,Ca,Min/Fa/Herbal No.157) 400 Mcg Tablet 400 Mcg PO DAILY Probiotic (Lactobacillus Combo No.10) 1 Each Capsule 1 Each PO DAILY Vitamin C (Ascorbic Acid) 1,000 Mg Tablet 1,000 Mg PO DAILY Vitamin E (Vitamin E (Dl,Tocopheryl Acet)) 400 Unit Capsule 400 Unit PO DAILY Aspirin 81 Mg Tab.chew 81 Mg PO DAILY Multi Vitamin Daily (Multivitamin) 1 Each Tablet 1 Each PO DAILY Osteo Bi-Flex Tablet (Glucosamine/D3/Boswellia Marcia) 1 Each Tablet 1 Each PO DAILY Fish Oil 1,000 Mg Capsule (Donalds-3 Fatty Acids/Fish Oil) 1 Each Capsule 1 Each PO DAILY Calcium + Vitamin D Tablet (Calcium Carbonate/Vitamin D3) 1 Each Tablet 1 Each PO QODAY Escitalopram Oxalate 10 Mg Tablet 10 Mg PO DAILY Nexium Capsule (Esomeprazole Magnesium) 40 Mg Capsule.dr 40 Mg PO DAILYAC Hydrochlorothiazide Capsule (Hydrochlorothiazide) 12.5 Mg Capsule 12.5 Mg PO DAILY Quinapril Hcl 40 Mg Tablet 40 Mg PO DAILY Vitals/I & O Vital Sign - Last 24 Hours 903/31/19 03/31/19 03/31/19 17:18 17:18 17:33 17:44 Temp 98.6 98.6 Pulse 89 91 Resp 16 17 18 B/P (MAP) 151/90 152/87 Pulse Ox 99 95 93 O2 Delivery Simple Mask Mask Room Air Room Air O2 Flow Rate 10 10 03/31/19 03/31/19 03/31/19 03/31/19 17:51 18:06 18:14 18:21 Pulse 93 93 96 Resp 18 20 20 20 B/P (MAP) 127/88 137/84 104/77 Pulse Ox 91 95 96 O2 Delivery Nasal Cannula Nasal Cannula Nasal Cannula Nasal Cannula O2 Flow Rate 2 2 2.0 2 03/31/19 03/31/19 03/31/19 03/31/19 18:27 18:33 18:36 18:51 Temp 98.0 98.0 Pulse 88 85 Resp 20 20 20 B/P (MAP) 126/82 114/73 Pulse Ox 96 95 94 O2 Delivery Nasal Cannula Nasal Cannula Nasal Cannula Nasal Cannula O2 Flow Rate 2 2.0 2 2 03/31/19 03/31/19 03/31/19 03/31/19 19:00 19:15 19:30 20:09 Temp 97.8 97.8 Pulse 83 83 82 Resp 16 20 B/P (MAP) 123/81 (95) 126/79 (95) 121/77 (92) Pulse Ox 96 97 96 O2 Delivery Nasal Cannula Nasal Cannula O2 Flow Rate 2.0 2.0 2.0 2.0 03/31/19 03/31/19 03/31/19 03/31/19 21:00 21:20 23:00 23:20 Temp 98.4 98.4 Pulse 84 82 Resp 20 22 22 B/P (MAP) 114/79 (91) 129/86 (100) Pulse Ox 96 96 O2 Delivery Nasal Cannula Nasal Cannula O2 Flow Rate 2.0 2.0 04/01/19 04/01/19 04/01/19 04/01/19 03:00 03:15 07:07 07:11 Temp 98.0 98.5 98.0 98.5 Pulse 83 82 Resp 22 22 20 20 B/P (MAP) 138/76 (96) 122/74 (90) Pulse Ox 98 94 O2 Delivery Room Air Room Air Room Air 04/01/19 04/01/19 08:59 09:22 Pulse 90 Resp 20 B/P (MAP) 134/91 O2 Delivery Room Air Intake and Output 0 03/31/19 03/31/19 04/01/19 14:59 22:59 06:59 Intake Total 1430 ml 1804 ml Output Total 400 ml Balance 1030 ml 1804 ml JACQUES HOOKER MD Apr 01, 2019 11:19
--- NOTE | 2019-04-01 15:46 | NUR ---
#24 used to start a insertion site for last antibiotic and then iv site dc'd; tolerated well.
[2019-04-01 18:09] VITALS: BP 100/64
[2019-04-01 22:37] VITALS: BP 92/67
--- NOTE | 2019-04-02 00:18 | NUR ---
Temp 98.7. In recliner, prune juice given for c/o constipation.
[2019-04-02 02:52] VITALS: BP 95/64
[2019-04-02] MEDS: PANTOPRAZOLE 40 MG TABLET.DR. PO SCH (06:32)
[2019-04-02 06:34] VITALS: BP 91/61
--- NOTE | 2019-04-02 06:48 | NUR ---
In recliner. New onset of small drainage from surgical incision. Temp 100.4. Encouraged IS.
[2019-04-02 07:57] VITALS: BP 96/68
[2019-04-02] MEDS: CITALOPRAM 20 MG TABLET. PO SCH (07:59)
[2019-04-02] MEDS: oxyCODONE/APAP 5/325 1 TAB TABLET PO PRN (07:59)
[2019-04-02] MEDS: LACTOBACILLUS RHAMNOSUS GG 1 CAPSULE. PO SCH (07:59)
[2019-04-02] MEDS: ASPIRIN CHEWABLE 81 MG TABLET. PO SCH (07:59)
[2019-04-02] MEDS: DOCUSATE SODIUM 100 MG CAPSULE. PO SCH (07:59)
[2019-04-02] MEDS: MULTIVITAMIN with MINERAL TABLET. PO SCH (07:59)
[2019-04-02] MEDS: ASCORBIC ACID 500 MG TABLET PO SCH (07:59)
[2019-04-02] MEDS: hydroCHLOROthiazide 12.5 MG CAPSULE PO SCH (08:02)
[2019-04-02] MEDS: LISINOPRIL 20 MG TABLET PO SCH (08:03)
[2019-04-02] MEDS ORDERED: DOCU-109 PO (08:10)
[2019-04-02] MEDS ORDERED: OXYC1TAB15 PO (08:10)
[2019-04-02] MEDS ORDERED: METH750T2 PO (08:10)
--- NOTE | 2019-04-02 08:13 | DISCH ---
DISCHARGE INSTRUCTIONS Condition on Discharge Condition on Discharge: Stable Activity After Discharge Activity Instructions for Disc: Activity as tolerated, Avoid exertion, Walk in house Other activity instructions: use walker until released, lumbar brace when up Bathing Instructions: Shower-keep dressing dry, No Tub Bath until see Lifting Instructions after Dis: No heavy lifting, No pulling or pushing, Do not lift >10 pounds Exercise Instruction after Dis: Progress as tolerated Driving Instructions after Dis: No driving for 2 weeks Weight Bearing Status after Di: No restrictions, Full weight bearing, As tolerated Diet after Discharge Diet after Discharge: GI Soft Additional Diet Restrictions: resume home diet Diet Texture: Regular Swallowing Supervision: None needed Wound Incision Care Wound/Incision Care: Ice to area for comfort, Keep wound/cast CDI Other wound/incision instructi: may remove dressing in 48 hours if dry then may shower, no soaking Wound Care Equipment: Dressings Checks after Discharge DC Comment: eat soft foods until sore throat has eased Contacting the DRAnnel after DC Call your doctor for: Concerns you may have Follow-Up Follow Up With: call [phone] for a 2 week post op appt with Dr. Mercado's nurse Treatment/Equipment after DC Adaptive Equipment Issued: Front wheeled JACQUES Farmer MD Apr 02, 2019 08:13
--- NOTE | 2019-04-02 08:13 | NUR ---
Nallely is up in recliner. has old drainage to dressing. instructed to db and use is; verbalized understanding. Addendum: 04/02/19 at 0814 by AMANDA EVANS RN temperature is 98.4
[2019-04-02 10:32] VITALS: BP 106/66
--- NOTE | 2019-04-02 10:48 | NUR ---
reviewed her discharge instructions with patient and . instructed to use her IS and DB. she has been afebrile this shift. instructed and demonstrated dressing changes. reviewed restrictions to activities of daily living such as driving, lifting restrictions and the side effects of narcotics. discussed laxatives. reinforced teaching regarding brace. verbalized understanding of these.
--- NOTE | 2019-04-05 16:06 | PATHOLOGY ---
[facility] Accession Number: [id number] . 01 Material submitted: . vertebral column - LUMBAR DECOMPRESSION . 01 Clinical history: . Lumbar stenosis, radiculopathy, spondylolisthesis . 02 Diagnosis: Segments of fibrocartilaginous, fibroadipose, and synovial tissue and bone, lumbar decompression: - Degenerative changes of fibrocartilaginous tissue. (JPM:radha; 04/05/2019) QMS 04/05/2019 0745 Local . 02 Comment: There is no evidence of an acute inflammatory process or malignancy. (JPM:radha; 04/05/2019) . 02 Electronically signed: . Arnold Marie MD, Pathologist NPI- [id number] . 01 Gross description: . Received in formalin labeled "Nallely Cruz, lumbar decompression," are several pieces of glistening, fibrous tissue measuring 4.9 x 3.1 x 1.6 cm in aggregate dimensions, containing small fragments of possible bone. The tissue is submitted representatively in cassette A1, following decalcification. (TSD; 04/01/2019) TOB/TOB 04/01/2019 1703 Local . 02 Pathologist provided ICD-10: M51.36 . 02 CPT . 593601, [id number] Specimen Comment: A courtesy copy of this report has been sent to Specimen Comment: [phone], . Specimen Comment: Report sent to / DR DEL CID Performed at: 01 [facility] [address], [place], [place] [id number] MD Elan Pride MD Phone: [phone] Performed at: 02 [facility] [address], [place] [id number] MD Arnold Marie MD Phone: [phone]
--- NOTE | 2019-04-06 20:55 | OP ---
DATE OF SURGERY: 03/31/2019 PREOPERATIVE DIAGNOSIS: Severe lumbar spinal stenosis at L4-L5 with spondylolisthesis with motion on flexion and extension. POSTOPERATIVE DIAGNOSIS: Severe lumbar spinal stenosis at L4-L5 with spondylolisthesis with motion on flexion and extension. OPERATION PERFORMED: Lumbar laminectomy at L4-L5, posterior instrumentation at L4-L5 and posterolateral fusion at L4-L5. The operation was done with multimodality monitoring including EMG, SSEP, motor-evoked potentials. We also used BrainLAB guidance, fluoroscopy and microscopic dissection. SURGEON: Ky Hooker M.D. DIRECT MARKETING COORDINATOR: Yoli Bragg APRN who assisted with the placement of hardware and laminectomy. OPERATIVE INDICATIONS: The patient is a pleasant 64-year-old woman who developed intractable back and left greater than right leg pain and was found to have the above-mentioned findings on imaging studies. I recommended a wide decompression and instrumentation combined with posterolateral fusion. I did consider performing an anterior discectomy and fusion as well. The patient understood the surgery, the risks, the technique and expected postoperative course and wished to go ahead. DESCRIPTION OF PROCEDURE: Following general endotracheal anesthesia, she was positioned prone on the Rick table. Lumbar region prepped and draped in standard fashion. BOB hose and AV impulse boots were applied for DVT prophylaxis. The microscope was draped. Fluoroscope was draped and brought into the field. Monitoring was established. Ancef 2 grams were given less than 1 hour prior to the initiation of the surgery. Iliac ports were placed into the right iliac crest and the BrainLAB system was initialized. We then made a midline posterior incision extending from superior L4 to inferior L5, dissected down through skin and subcutaneous tissue, reflected the paraspinal muscles and placed self-retaining retractors. I brought in the BrainLAB system and placed pedicle screws in L4 and L5 bilaterally. I did this by first drilling into the posterior aspect of the pedicle, followed by the black ball, followed by ball-tip probe, followed by tap, followed by screw placement. The screws were placed, the rods were placed and the system and the nuts were applied, but not yet torqued. I did use stimulated EMG monitoring for any maneuver within the pedicles and there were no difficulties. I then brought in the microscope and using the high speed air drill with a conical mayte, I burred down a very generous laminectomy removing the spinous processes of L4 and L5 and then drilling down the ligamentum flavum and working laterally bilaterally. More decompression was done on the left side, the symptomatic side and the nonsymptomatic side, but as I worked, the region became very well decompressed. I saved this bone to mix with allograft bone, excoriated the lateral gutters and placed bone lateral gutters after aspirating 20 mL of bone marrow. I noted the patient's anatomy in which the pedicle of L4 was slightly inferior and the L4 root moved laterally paralleling the disc space, which precluded safely placing an interbody fusion cage. I did, after the full decompression and a partial foraminotomy, explored and I felt that there was no discectomy warranted. I did then torqued the system sequentially and irrigated copiously with antibiotic solution at this point, then I had an excellent decompression. The laminectomy was performed. The posterolateral fusion was performed. I closed the wound then in layers with absorbable suture. The skin was closed with 4-0 subcuticular stitch. The operation went very well, and the patient was taken to recovery room in excellent condition. I was quite pleased with the surgery. KY HOOKER MD DR: PORSHA/lisbeth JOB#: [id number] / [id number] BENSON
== END 2019-04-02 10:58 | disposition home or self-care (01) | DRG 460 ==
LOC: OPSVCIP 03-31 07:26 → 4 SOUTHEST 03-31 19:02
PROVIDERS: ADMIT Neurological Surgery; ATTEND Neurological Surgery
PROC: 01NB0ZZ Release Lumbar Nerve, Open Approach (ICD-10-PCS; 2019-03-31)
PROC: 4A11X4G Monitoring of Peripheral Nervous Electrical Activity, Intraoperative, External Approach (ICD-10-PCS; 2019-03-31)
PROC: 0SG0071 Fusion of Lumbar Vertebral Joint with Autologous Tissue Substitute, Posterior Approach, Posterior Column, Open Approach (ICD-10-PCS; principal; 2019-03-31 10:30)
DX: M48.062 Spinal stenosis, lumbar region with neurogenic claudication (principal); M54.16 Radiculopathy, lumbar region; M43.16 Spondylolisthesis, lumbar region; G43.909 Migraine, unspecified, not intractable, without status migrainosus; I10 Essential (primary) hypertension; Z82.0 Family history of epilepsy and other diseases of the nervous system; Z82.49 Family history of ischemic heart disease and other diseases of the circulatory system; Z87.891 Personal history of nicotine dependence; Z91.81 History of falling; Z98.51 Tubal ligation status; Z83.3 Family history of diabetes mellitus; Z79.899 Other long term (current) drug therapy; Z90.49 Acquired absence of other specified parts of digestive tract; Z88.8 Allergy status to other drugs, medicaments and biological substances
CPT/HCPCS: 36415; 72131; 76000; 86850; 86900; 86901; 88304; 88311; 99406; A7015; C1713; J0690; J0696; J1100; J1885; J2001; J2250; J2270; J2405; J2704; J2710; J3010; J3490; J7030; J7120; 97110; 97116; 97530; G0378

== ENCOUNTER → 2021-03-21 | Outpatient (CLI) | payer MEDICARE, OTHER ==
[~2021-03-21] MED LIST changes: +ASCO100019 PO; -ASCO10002 PO; -BACITRACIN 50,000 UNIT in IV NORMAL SALINE 1000ML BAG 1,000 ML IRR ONE; -BUPIVACAINE-EPI 0.5%-1:200000 MPF 30 ML VIAL. INJ ONE; +DOCU-109 PO; -HYDROmorphone 2 MG/ML VIAL IV PRN; -IV RINGERS,LACTATED 1000ML 1,000 ML IV SCH; -LACT1CAP29 PO; +LACT1CAP37 PO; -LIDOCAINE 1% PF 2 ML VIAL. ID PRN; +METH-562 PO; -MORPHINE SULFATE 2 MG/ML VIAL. IV PRN; -ONDANSETRON PF 4 MG/2 ML VIAL. IV PRN; +OXYC1TAB15 PO; -PROCHLORPERAZINE 10 MG/2 ML VIAL. IV PRN; +VITA-47 PO; -VITA400C6 PO; -fentaNYL PF VIAL 100 MCG/2 ML VIAL IV PRN
--- NOTE | 2021-03-21 11:34 | KCIC ---
EXAMINATION: Magnetic resonance imaging (MRI) of the lumbar spine without contrast 03/21/2021 10:18 AM HISTORY: Lumbar radicular pain. Surgery 2019. Return of left hip and leg pain in the last 6 months. TECHNIQUE: Multiplanar multi-weighted MRI of the lumbar spine was performed without intravenous contr ast using the standard lumbar spine protocol. Contrast information: None administered. COMPARISON: None available. FINDINGS: There is subtle signal alteration involving the anterior T10 vertebral body which is likely partially profiled on this examination. Modic type I endplate degenerative changes identified anteriorly at T1 2-L1. Schmorl's nodes are identified at T12, L1, L2 and L3 without significant height loss. Posterior fusion is identified at L4-L5 with bilateral pedicle screws and dual rods. Moderate disc height loss at L5-S1 with Modic type I endplate degenerative changes and disc desiccation. Conus medullaris term inates at L2. Distal spinal cord signal intensity is normal in all sequences. Abdominal aorta is norm al in caliber. No suspicious retroperitoneal abnormality. Visualized portions of the kidneys appear n ormal. Exophytic right renal cyst measures 1.6 cm. T11-T12: There is a circumferential disc bulge. Mild facet arthropathy. Mild bilateral neuroforaminal stenosis. Mild spinal canal stenosis. No compression of the conus. T12-L1: There is a circumferential disc bulge. Mild facet arthropathy. No neuroforaminal or spinal ca nal stenosis. L1-L2: There is a circumferential disc bulge. Mild facet arthropathy.. No significant neuroforaminal stenosis. Mild spinal canal stenosis. L2-L3: Mild disc bulge asymmetric to the left. Mild facet arthropathy. Mild to moderate bilateral adán roforaminal stenosis. Mild spinal canal stenosis. L3-L4: There is a disc bulge asymmetric to the left. Mild/moderate facet arthropathy ligamentum flavu m infolding. Moderate left and mild/moderate right neuroforaminal stenosis. Mild spinal canal stenosi s with narrowing of the left lateral recess. L4-L5: This level is fused and partly decompressed. No residual spinal canal stenosis. There is persi stent right lateral recess stenosis secondary to facet arthropathy. Mild to moderate bilateral neurof oraminal stenosis. L5-S1: There is circumferential disc bulge with central disc protrusion. Moderate facet arthropathy. Severe bilateral neuroforaminal stenosis. No significant spinal canal stenosis. IMPRESSION: Posterior fusion is identified at L4-L5 without evidence for hardware failure. Transitional level dis ease identified at L3-L4 and L5-S1 as detailed above. Moderate lumbar spondylosis. Mild signal alteration involving the anterior T10 vertebral body is only partially profiled. Consider ation may be given for osseous hemangioma, although further evaluation with MR thoracic spine without contrast is recommended. Electronically signed by: Tonya Chester MD (03/21/2021 11:32 AM) [id number]
== END ==
LOC: KCIC MRI 09:41
PROVIDERS: ATTEND Physician Assistant Medical
DX: M47.817 Spondylosis without myelopathy or radiculopathy, lumbosacral region (principal); M47.815 Spondylosis without myelopathy or radiculopathy, thoracolumbar region; M51.27 Other intervertebral disc displacement, lumbosacral region; M51.25 Other intervertebral disc displacement, thoracolumbar region; M48.8X7 Other specified spondylopathies, lumbosacral region; M48.8X5 Other specified spondylopathies, thoracolumbar region; M48.07 Spinal stenosis, lumbosacral region; M48.05 Spinal stenosis, thoracolumbar region; M51.45 Schmorl's nodes, thoracolumbar region
CPT/HCPCS: 72148

== ENCOUNTER → 2021-04-03 | Outpatient (CLI) | payer MEDICARE ==
[~2021-04-03] MED LIST changes: +BETA15OI6 TP; +BUDE10.2 IH; +IOHEXOL 180 MG/ML 10 ML VIAL. ONE; +METR70GE2 VG; +TRIA15CR3 TP; +methylPREDNISolone ACETATE 80 MG/ML VIAL. ONE; +prevagen PO
--- NOTE | 2021-04-03 13:20 | PDOC1 ---
INITIAL PAIN CONSULT DATE OF SERVICE: DOS: DATE: 04/03/21 TIME: 13:14 CHIEF COMPLAINT: Chief Complaint: Low back and left lower extremity pain HISTORY OF PRESENT ILLNESS: 65-year-old female presents with history of pain low back left lower extremity for about 6 months not the result of any specific injury or accident that she is aware of is getting worse with time walking standing changing positions exacerbates the pain was radiating across the low back and the left lower extremity posterior gluteus posterior thigh posterior calf and ankle some into the foot and toes occasionally patient reports is only when is she is on her feet for more than about 15 minutes patient reports the pain is worse with walking standing changing positions wakes her from sleep least once or twice a night does not affect her bowel bladder control but does affect her ability to walk and she is using a walker which she has with her today. Patient is had chiropractic treatment as well as physical therapy treatments in the past and still doing stretching strength exercises but is not decreasing the pain significantly patient reports pain is constant shooting radiating changes during the day worse with activity worse with standing more time on her feet as well as with prolonged sitting. Patient reports pain is generally better with laying down but again is awakened from sleep at least once or twice a night. Patient rates her disability rating 0-10 10 being the worst is a 6 with family home responsibilities social activity occupation sexual behavior and self-care 8 with light support activities on 8 with recreational activities. MRI scan lumbar spine showing previous fused L3-4 level with posterior instrumentation L5-S1 shows sequential disc bulge with central disc protrusion severe bilateral neuroforaminal stenosis. PAST MEDICAL HISTORY: PMH: Hypertension, arthritis, cataracts, cigarette smoking PREVIOUS SURGERIES: Past Surgical Hx: Tonsillectomy, left shoulder surgery, tubal ligation, cataract extractions bilaterally, carpal tunnel on the left repaired, lumbar fusion 2018 CURRENT MEDICATIONS: Current Meds: Active Scripts Medications Dose Route/Sig Max Daily Dose Days Date Category Betamethasone Dp Aug 0.05% Oin (Betamethasone/Propylene Glyc) 15 Gm Oint...g. 15 Gm TP DAILY 04/03/21 Reported Triamcinolone Acetonide 0.1% Cream (Triamcinolone Acetonide) 15 Gm Cream..g. 1 Breezy TP DAILY 04/03/21 Reported [prevagen] PO 04/03/21 Reported Symbicort 160-4.5 Mcg Inhaler (Budesonide/Formoterol Fumarate) 10.2 Gm Hfa.aer.ad 2 Puff IH BID 04/03/21 Reported Metronidazole 70 Gm Gel.w.appl 1 Appful VG QHS 04/03/21 Reported Colace (Docusate Sodium) 100 Mg Capsule 100 Mg PO BID 04/02/19 Rx Methocarbamol 750 Mg Tablet 750 Mg PO PRN TID PRN 04/02/19 Rx Estroven Max Strength Caplet (Mv,Ca,Min/Fa/Herbal No.157) 400 Mcg Tablet 400 Mcg PO DAILY 03/07/19 Reported Probiotic (Lactobacillus Combo No.10) 1 Each Capsule 1 Each PO DAILY 03/07/19 Reported Vitamin C (Ascorbic Acid) 1,000 Mg Tablet 1,000 Mg PO DAILY 03/07/19 Reported Vitamin E (Vitamin E (Dl,Tocopheryl Acet)) 400 Unit Capsule 400 Unit PO DAILY 03/07/19 Reported Aspirin 81 Mg Tab.chew 81 Mg PO DAILY 03/07/19 Reported Multi Vitamin Daily (Multivitamin) 1 Each Tablet 1 Each PO DAILY 03/07/19 Reported Osteo Bi-Flex Tablet (Glucosamine/D3/Boswellia Marcia) 1 Each Tablet 1 Each PO DAILY 03/07/19 Reported Fish Oil 1,000 Mg Capsule (Gipsy-3 Fatty Acids/Fish Oil) 1 Each Capsule 1 Each PO DAILY 03/07/19 Reported Calcium + Vitamin D Tablet (Calcium Carbonate/Vitamin D3) 1 Each Tablet 1 Each PO QODAY 03/07/19 Reported Escitalopram Oxalate 10 Mg Tablet 10 Mg PO DAILY 03/07/19 Reported Nexium Capsule (Esomeprazole Magnesium) 40 Mg Capsule.dr 40 Mg PO DAILYAC 09/30/17 Reported Hydrochlorothiazide Capsule (Hydrochlorothiazide) 12.5 Mg Capsule 12.5 Mg PO DAILY 09/30/17 Reported Quinapril Hcl 40 Mg Tablet 40 Mg PO DAILY 09/30/17 Reported ALLERGIES; Allergies: Coded Allergies: chlorhexidine (Verified Allergy, Severe, Swelling, 03/31/19) SKIN, RASH, MOUTH/TONGUE SWELLING cyclobenzaprine (Verified Adverse Reaction, Intermediate, 03/31/19) DRY MOUTH FAMILY HISTORY: Family Hx: Heart disease SOCIAL HISTORY: Social Hx: Patient drinks alcohol about 2 drinks daily, smokes less than half a pack a day and has for 40 years and continues to smoke does not use any illegal illicit or recreational drugs is lives with her spouse lives locally in [facility] REVIEW OF SYSTEMS: ROS: Positive for those items mentioned in history of present illness, all systems are reviewed, otherwise negative ,and are complete full and well-documented on patient's chart. PHYSICAL EXAM: VS: Blood pressure is 135/90 pulse 84 respirations 18 temperature 98.6 F height is 5 feet 9 inches weight is 176 pounds PE: PHYSICAL EXAMINATION: GENERAL: The patient is awake, alert, oriented, appropriate, very pleasant in demeanor. HEENT: Shows normocephalic, atraumatic. Extraocular movements are intact and symmetrical. Oral cavity: Mucous membranes moist and pink. NECK: Shows anterior throat supple without palpable lymphadenopathy noted. Swallow reflex symmetrical. CHEST: Shows normal on inspection. Breath sounds are clear bilaterally, distant but no rales or rhonchi. HEART: Shows S1, S2 clear. No murmurs auscultated. ABDOMEN: Soft, nontender, nondistended, obese. No palpable organomegaly is noted. No rebound or guarding demonstrated. BACK: Shows spine grossly in the midline. Normal-appearing cervical lordotic curvature. There is slightly increased thoracic kyphosis, some flattening of the lumbar lordotic curvature, with well-healed midline surgical scarring. Lumbar paraspinous muscles show symmetrical on inspection, on palpation shows some moderate tenderness diffusely throughout the upper, middle and lower distr ibution of the paraspinous muscles bilaterally and also into the lower thoracic paraspinous musculature, firm and tender, but without specific trigger points, without radiation of pain. The patient has good rotational motion of the lumbar spine, both laterally as well as extension and flexion without significant difficulty. No tenderness over the spinous processes, sacrum or sacroiliac regions. EXTREMITIES: Lower extremities show deep tendon reflexes 2+ in the patellar and tendo calcaneus tendons. Motor exam is 5 on a scale of 5 with right dorsiflexion, extension, quadriceps and hamstring flexion and 4/5 on the left. Peripheral pulses are 1 posterior tibial. No peripheral edema is noted bilaterally. Lower extremities are warm and dry to touch, equal in color and appearance. Straight leg raise noted to be positive on the left at approximate 45 degrees decreased with knee flexion right side is negative. Gaenslen's and Colin's maneuvers are negative as well. The patient is able to stand, stand on toes but requires some assistance getting up from a seated position using the arms of the chair is using a walker to ambulate and has a slight shuffling gait does appear to favor the left lower extremity while ambulating. SKIN: Shows warm and dry, good turgor. No edema. No sores, rashes or bruising throughout. IMPRESSION: Impression: 65-year-old female with 6-month history increasing pain low back and left lower extremity radicular fashion. MRI scan lumbar spine as noted Hypertension Arthritis Cigarette smoking Plan: Options were discussed with the patient including conservative management physical therapies interventional techniques. Patient would like to pursue interventional techniques. We discussed a lumbar epidural steroid injection using descriptions as well as anatomical models to describe the procedure. Risks were discussed including but not limited to: Bleeding, infection, possibility of epidural hematoma and subsequent neurological compromise, dural puncture, headaches, spinal cord and/or nerve damage, side effects of steroid medication, and poor results regarding pain control. Patient understands and wished to proceed. Patient will return to the clinic in approximate 2 weeks for follow-up, was counseled as to return appointment active level and side effects to be aware of. Procedure is lumbar epidural steroid injection under local anesthetic using sterile prep and drape at the L5-S1 level using C-arm fluoroscopic guidance in both AP and lateral views medications injected is 120 mg Depo-Medrol +10mL preservative-free normal saline and 2 mL contrast- condition at discharge is stable patient tolerated procedure well had no complications. MARK GILBERT MD Apr 03, 2021 13:20
--- NOTE | 2021-04-03 13:21 | PDOC4 ---
Procedure Note: ICD 10 Code: ICD 10 Code: M 54.17 M 48.07 M 51.87 Procedure Note: Patient was consented for lumbar epidural steroid injection with fluoroscopic guidance. Risks were discussed including but not limited to: Bleeding, infection, possibility of epidural hematoma and subsequent neurological compromise, dural puncture, headaches, spinal cord and/or nerve damage, side effects of steroid medication, and poor results regarding pain control. Patient understands and wished to proceed. Procedure is lumbar epidural steroid injection under local anesthetic using s terile prep and drape at the L5-S1 level using C-arm fluoroscopic guidance in both AP and lateral views medications injected is 120 mg Depo-Medrol +10mL preservative-free normal saline and 2 mL contrast- condition at discharge is stable patient tolerated procedure well had no complications. MARK GILBERT MD Apr 03, 2021 13:21
== END | disposition home or self-care (01) ==
LOC: PNCL 10:23
PROVIDERS: ATTEND Anesthesiology
DX: M54.5 Low back pain (principal); M79.605 Pain in left leg; M54.17 Radiculopathy, lumbosacral region; M48.07 Spinal stenosis, lumbosacral region; M51.87 Other intervertebral disc disorders, lumbosacral region; I10 Essential (primary) hypertension; K21.9 Gastro-esophageal reflux disease without esophagitis; F41.9 Anxiety disorder, unspecified; F32.9 Major depressive disorder, single episode, unspecified; F17.210 Nicotine dependence, cigarettes, uncomplicated; Z79.82 Long term (current) use of aspirin; Z79.899 Other long term (current) drug therapy; Z98.890 Other specified postprocedural states; Z98.51 Tubal ligation status
CPT/HCPCS: 62323; J1040; Q9965

== ENCOUNTER → 2021-04-17 | Outpatient (CLI) | payer MEDICARE ==
[~2021-04-17] MED LIST changes: +BUPIVACAINE MPF 0.25% 10 ML VIAL. ONE
--- NOTE | 2021-04-17 10:49 | PDOC ---
Progress Note - Pain Clinic Date of Service: DOS: DATE: 04/17/21 TIME: 10:44 Diagnosis: Dx: Lumbar to colopathy with lumbar degenerative disease and lumbar spinal stenosis Left shoulder joint pain with osteoarthritis History or Present Illness: HPI: 66-year-old female returns for follow-up status post lumbar epidural steroid action x1. Patient reports about 80% improvement in the low back and left lower extremity doing much better patient is increase her activities greater ease and comfort walking greater distances doing household activities work activities greater ease and comfort sleeping better at night. Patient reports is very pleased with her progress her chief complaint today however is left shoulder pain which is significant and she has had significant arthritis for many years and sees her orthopedic surgeon who was recommending surgical shoulder replacement however patient is not ready to do that. Patient reports the pain is been more noticeable now in the left shoulder for the past few weeks rated as a 6 on scale 10 is worse for an average to its least is a 4 today patient scribes as dull and tight cramping on and off in intensity but in the left shoulder with any weightbearing repetitive motions or range of motion past 45 degrees laterally as well as reaching backwards forwards with weightbearing and repetitive lifting. Patient reports is difficult for her to raise her left hand over her head as well. Patient reports no significant pain in the right shoulder however. Physical Exam: VS: Blood pressure is 160/103 pulse 81 respirations 16 temperature is 98.1 F weight is 176 pounds PE: PHYSICAL EXAMINATION: GENERAL: The patient is awake, alert, oriented, appropriate, very pleasant in demeanor HEENT: Shows normocephalic, atraumatic. Extraocular movements are intact and symmetrical. Oral cavity: Mucous membranes moist and pink. Dentition is intact. NECK: Shows anterior throat supple without palpable lymphadenopathy noted. Swallow reflex symmetrical. CHEST: Shows normal on inspection. Breath sounds are clear bilaterally, distant no rales or rhonchi. HEART: Shows S1, S2 clear. No murmurs auscultated. ABDOMEN: Soft, nontender, nondistended, obese. No palpable organomegaly is noted. BACK: Shows spine grossly in the midline. Normal-appearing cervical lordotic curvature. There is slightly increased thoracic kyphosis, some minor flattening of the lumbar lordotic curvature. Lumbar paraspinous muscles show symmetrical on inspection, on palpation shows some moderate tenderness diffusely throughout the upper, middle and lower distribution of the paraspinous muscles without specific trigger points, without radiation of pain. The patient has good rotational motion of the lumbar spine, both laterally as well as extension and flexion without significant difficulty. EXTREMITIES: Lower extremities show deep tendon reflexes 2+ in the patellar and tendo calcaneus tendons. Motor exam is 5 on a scale of 5 with right dorsiflexion, extension, quadriceps and hamstring flexion and 4/5 on the left. Peripheral pulses are 1+ posterior tibial. No peripheral edema is noted bilaterally. Lower extremities are warm and dry to touch, equal in color and appearance. Upper extremity show deep tendon reflexes 2+ in the bicep tricep tendons, motor exam is strong with deicer inspector electric strength rated 5 out of 5 and 5 out of 5 bicep and triceps on the right 4-5 on the left. Patient's left shoulder shows significant tenderness with palpation of the anterior aspect of the glenohumeral joint as well as posteriorly and mild tenderness over the acromioclavicular joint superiorly. Patient shows difficulty with abduction past 45 degrees on the left with resistance cause increased pain as well. Right side shows full rotation motion without pain on resistance throughout. SKIN: Shows warm and dry, good turgor. No edema. No sores, rashes or bruising throughout. Procedure: Procedure: Options were discussed with the patient. Patient chart was reviewed as her current medication regimen updated current review of systems updated today as well. We will proceed with a left intra-articular shoulder joint traction today with fluoroscopic guidance. Risk were discussed including not limited to bleeding infection possibility of intravascular injection sequelae spread local anesthetic numbness side effects steroid medication exposure fluoroscopy and poor results regarding pain control. Patient understands wishes to proceed. Patient return to clinic in approximate 4 weeks for follow-up, was counseled return appointment, activity level, and side effects to be aware of. Medication Injected: Med Injected: Patient supine position under sterile prep and drape using C-arm fluoroscopic guidance patient's left shoulder was visualized and using 25-gauge needle 1% lidocaine was used to topically anesthetized area over the glenohumeral joint on the left. Using a 22-gauge Quincke needle with stylette the joint was entered under direct fluoroscopic visualization without difficulty stylet was removed at this time 2 cc of contrast was injected with good intra-articular spread in the shoulder joint without uptake. At this time 3 cc of 0.25% bupivacaine and 80 mg Depo-Medrol was then injected into the joint. Needle was removed and sterile bandage was applied. Patient tolerated the procedure well and had no complications. Condition at Discharge: Condition at Discharge: Condition at discharge is stable, patient already procedure well and had no complications. MARK GILBERT MD Apr 17, 2021 10:49
--- NOTE | 2021-04-17 10:50 | PDOC4 ---
Procedure Note: ICD 10 Code: ICD 10 Code: M2 5.512 M19.012 Procedure Note: Patient was consented for left intra-articular glenohumeral shoulder joint injection with fluoroscopic guidance. Risks were discussed including but not limited to bleeding infection possibility of intravascular injection sequelae spread local anesthetic and numbness side effects steroid medication exposure fluoroscopy and portals regarding pain control. Patient understands wished to proceed. Patient supine position under sterile prep and drape using C-arm fluoroscopic guidance patient's left shoulder was visualized and using 25-gauge needle 1% lidocaine was used to topically anesthetized area over the glenohumeral joint on the left. Using a 22-gauge Quincke needle with stylette the joint was entered under direct fluoroscopic visualization without difficulty stylet was removed at this time 2 cc of contrast was injected with good intra-articular spread in the shoulder joint without uptake. At this time 3 cc of 0.25% bupivacaine and 80 mg Depo-Medrol was then injected into the joint. Needle was removed and sterile bandage was applied. Patient tolerated the procedure well and had no complications. MARK GILBERT MD Apr 17, 2021 10:50
== END | disposition home or self-care (01) ==
LOC: PNCL 10:02
PROVIDERS: ATTEND Anesthesiology
DX: M19.012 Primary osteoarthritis, left shoulder (principal); M51.16 Intervertebral disc disorders with radiculopathy, lumbar region; M48.061 Spinal stenosis, lumbar region without neurogenic claudication; M25.512 Pain in left shoulder; I10 Essential (primary) hypertension; K21.9 Gastro-esophageal reflux disease without esophagitis; F41.9 Anxiety disorder, unspecified; F32.9 Major depressive disorder, single episode, unspecified; F17.210 Nicotine dependence, cigarettes, uncomplicated; Z79.82 Long term (current) use of aspirin; Z79.899 Other long term (current) drug therapy; Z98.51 Tubal ligation status; Z98.890 Other specified postprocedural states; Z88.8 Allergy status to other drugs, medicaments and biological substances
CPT/HCPCS: 20610; 77002; J1040; J3490; Q9965

== ENCOUNTER → 2021-08-01 | Outpatient (CLI) | payer MEDICARE ==
[~2021-08-01] MED LIST changes: +CYCL10TA19 PO; -CYCL10TA2 PO; -methylPREDNISolone ACETATE 80 MG/ML VIAL. ONE
--- NOTE | 2021-08-01 10:34 | PDOC ---
Progress Note - Pain Clinic Date of Service: DOS: DATE: 08/01/21 TIME: 10:27 Diagnosis: Dx: Left shoulder joint pain with osteoarthritis Lumbar radiculopathy with lumbar degenerative disc disease and lumbar spinal stenosis Hypertension History or Present Illness: HPI: 66-year-old female returns for follow-up status post lumbar epidural steroid injection and left shoulder joint traction last seen April 17, 2021 patient did very well with about 80% improvement for 3 months in the left shoulder patient reports that she was increasing her activity reaching lifting weights with greater ease and comfort sleeping better at night. Patient reports pain began to return about 2 to 3 weeks ago with pain noticeable with repetitive motions with the left arm reaching overhead with her left hand sleeping on her left side at night and reaching forward with weightbearing and repetitive motions with the left upper extremity patient reports the pain is increasing in the shoulder itself radiating to the anterior bicep and into the posterior deltoid as well patient rates it as an 8 on scale 10 is worse over the past week 7 on average 6 its least is a 7 today patient reports no loss of motor function but significant fatigability with the left arm as well. Patient also had recent fall with CT scan of the skull and orbits with orbital fracture nondisplaced on the right side which we discussed the results of the CT scan with her today. Patient reports no loss of motor function of the left upper extremity but significant fatigability with the left arm and pain with weightbearing repetitive motion patient scribes the pain is stabbing and sharp in the shoulder itself. Patient's blood pressure today was 162/95 repeated was 167/97 patient is taking antihypertensives and we discussed the importance of her blood pressure maintenance and how pain can relate to this increasing blood pressure with painful states however also recommend following up with her primary care physician regarding this. Patient voices understanding. Physical Exam: VS: Blood pressure is 162/90 5 repeat 167/97 pulse 75 respirations 18 temperature 98.0 review Fahrenheit weight is 181 pounds PE: PHYSICAL EXAMINATION: GENERAL: The patient is awake, alert, oriented, appropriate, very pleasant in demeanor HEENT: Shows normocephalic. Patient with bruising around the right orbit especially inferiorly. Extraocular movements are intact and symmetrical. Oral cavity: Mucous membranes moist and pink. NECK: Shows anterior throat supple without palpable lymphadenopathy noted. Swallow reflex symmetrical. CHEST: Shows normal on inspection. Breath sounds are clear bilaterally, distant but no rales or rhonchi. HEART: Shows S1, S2 clear. No murmurs auscultated. ABDOMEN: Soft, nontender, nondistended. No palpable organomegaly is noted. BACK: Shows spine grossly in the midline. Normal-appearing cervical lordotic curvature. Cervical paraspinous muscles show symmetrical inspection on palpation some very mild tenderness inferior aspect the cervical paraspinous muscular only on the left side but without trigger points without radiation or asymmetry. Patient shows full rotation motion cervical spine both laterally as well as extension flexion without significant difficulty. There is slightly inc reased thoracic kyphosis, some minor flattening of the lumbar lordotic curvature. Lumbar paraspinous muscles show symmetrical on inspection, on palpation shows some moderate tenderness diffusely throughout the upper, middle and lower distribution of the paraspinous muscles bilaterally and also into the lower thoracic paraspinous musculature, firm and tender, but without specific t teacher theater arts points, without radiation of pain. The patient has good rotational motion of the lumbar spine, both laterally as well as extension and flexion without significant difficulty. No tenderness over the spinous processes, sacrum or sacroiliac regions. EXTREMITIES: Lower extremities show deep tendon reflexes 1+ in the patellar and tendo calcaneus tendons. Motor exam is 5 on a scale of 5 with right dorsiflexion, extension, quadriceps and hamstring flexion and 4/5 on the left. Peripheral pulses are 1+ posterior tibial. No peripheral edema is noted bilaterally. Lower extremities are warm and dry to touch, equal in color and appearance. Upper extremities show deep tendon reflexes 2+ bicep tricep tendons motor exam is trauma 5 out of 5 stitch wheeler strength on the right bicep and tricep flexion and 4-5 on the left. Patient's left shoulder shows significant tenderness with abduction and resistance as well as shoulder shrug with resistance on the left side only but without loss of motor function. SKIN: Shows warm and dry, good turgor. No edema. Procedure: Procedure: Options were discussed with the patient. Patient's chart was reviewed as her current medication regimen updated current review of systems updated today as well. We will proceed with left intra-articular glenohumeral shoulder joint injection today with fluoroscopic guidance. Risks are discussed including but not limited to bleeding infection possibility of intravascular injection sequelae spread of local anesthetic and numbness side effects steroid medication exposure fluoroscopy and poor results regarding pain control. Patient understands wished to proceed. Patient will return to clinic in approximately 2 months or as necessary. Patient was given instructions as well as side effects to be aware of and follow-up appointment. Again patient will follow-up with primary care physician regarding elevated blood pressure readings. Medication Injected: Med Injected: Patient supine position under sterile prep and drape using C-arm fluoroscopic guidance patient's left shoulder was visualized and using 25-gauge needle 1% lidocaine was used to topically anesthetized area over the glenohumeral joint on the left. Using a 22-gauge Quincke needle with stylette the joint was entered under direct fluoroscopic visualization without difficulty stylet was removed at this time 2 cc of contrast was injected with good intra-articular spread in the shoulder joint without uptake. At this time 3 cc of 0.25% bupivacaine and 80 mg Depo-Medrol was then injected into the joint. Needle was removed and sterile bandage was applied. Patient tolerated the procedure well and had no complications. Condition at Discharge: Condition at Discharge: Condition at discharge stable, patient tolerated procedure well and had no complications. MARK GILBERT MD Aug 01, 2021 10:34
--- NOTE | 2021-08-01 10:35 | PDOC4 ---
Procedure Note: ICD 10 Code: ICD 10 Code: M25.512 M19.012 Procedure Note: Patient was consented for left intra-articular shoulder joint injection with fluoroscopic guidance. Risk were discussed including but not limited to bleeding infection possibility of intravascular injection and sequelae spread of local anesthetic numbness side effects of steroid medication and poor results regarding pain control. Patient understands and wishes to proceed. Patient supine position under sterile prep and drape using C-arm fluoroscopic guidance patient's left shoulder was visualized and using 25-gauge needle 1% lidocaine was used to topically anesthetized area over the glenohumeral joint on the left. Using a 22-gauge Quincke needle with stylette the joint was entered under direct fluoroscopic visualization without difficulty stylet was removed at this time 2 cc of contrast was injected with good intra-articular spread in the shoulder joint without uptake. At this time 3 cc of 0.25% bupivacaine and 80 mg Depo-Medrol was then injected into the joint. Needle was removed and sterile bandage was applied. Patient tolerated the procedure well and had no complications. MARK GILBERT MD Aug 01, 2021 10:35
== END | disposition home or self-care (01) ==
LOC: PNCL 09:33
PROVIDERS: ATTEND Anesthesiology
DX: M19.012 Primary osteoarthritis, left shoulder (principal); M51.16 Intervertebral disc disorders with radiculopathy, lumbar region; M48.061 Spinal stenosis, lumbar region without neurogenic claudication; I10 Essential (primary) hypertension; K21.9 Gastro-esophageal reflux disease without esophagitis; F41.9 Anxiety disorder, unspecified; F32.9 Major depressive disorder, single episode, unspecified; F17.210 Nicotine dependence, cigarettes, uncomplicated; Z98.51 Tubal ligation status; Z98.890 Other specified postprocedural states; Z79.899 Other long term (current) drug therapy; Z88.8 Allergy status to other drugs, medicaments and biological substances
CPT/HCPCS: 20610; 77002; J3490; Q9965

== ENCOUNTER → 2021-12-04 | Outpatient (CLI) | payer MEDICARE ==
[~2021-12-04] MED LIST changes: +DEXAMETHASONE PRES.FREE 10 MG/ML VIAL. ONE
--- NOTE | 2021-12-04 11:43 | PDOC ---
Progress Note - Pain Clinic Date of Service: DOS: DATE: 12/04/21 TIME: 11:38 Diagnosis: Dx: Lumbar radiculopathy with lumbar degenerative disease and lumbar spinal stenosis Left shoulder joint pain with osteoarthritis History or Present Illness: HPI: 66-year-old female returns for follow-up status post left shoulder joint injection most recently August 01, 2021. Patient reports he did very well with about 80% improvement initially and then about 30% improvement after several months now the pain is returning fairly significantly in the left shoulder with repetitive motions reaching over her head with her left arm reaching forward with weightbearing and repetitive weightbearing also with driving a car using her left arm and reaching forward as well. Patient reports is waking her from sleep occasionally but not every night patient reports that she did much better initially with doing activities tried with greater ease and comfort with much more rotation of motion ability with the left arm patient reports now the pain is sharp and dull alternating shooting into the lateral aspect of the upper arm and it is becoming more constant. Patient reports her pain is 8 on scale 10 is worse over the past week 6 on average 5 its least is a 6 today. Patient reports no motor or sensory deficits. Patient reports pain in the low back and left lower extremity in a posterior gluteus posterior thigh posterior calf worse with walking standing changing positions again this is awaken her from sleep occasionally as well and becoming more noticeable over the past month or so. Patient reports no loss of motor function no bowel or bladder incontinence. He has been taking [id number] analgesics such as Advil and Tylenol without significant reduction in the pain in the low back. For the left shoulder. Patient continues to do stretching and strength exercises involving both the upper extremities and the lower extremity without significant reduction in pain as well. Patient been walking daily as [place] and is having difficulty with the left lower extremity with daily walking which she is continuing to do at despite the pain. Patient does report some fatigability of the left lower extremity with ambulation but no loss of motor function. Physical Exam: VS: Blood pressure is 151/106 pulse 84 respirations 20 temperature is 98.7 F weight is 177 pounds. PE: PHYSICAL EXAMINATION: GENERAL: The patient is awake, alert, oriented, appropriate, very pleasant in demeanor HEENT: Shows normocephalic, atraumatic. Extraocular movements are intact and symmetrical. Oral cavity: Mucous membranes moist and pink. Dentition is intact. NECK: Shows anterior throat supple without palpable lymphadenopathy noted. Swallow reflex symmetrical. CHEST: Shows normal on inspection. Breath sounds are clear bilaterally, distant but no rales or rhonchi. HEART: Shows S1, S2 clear. No murmurs auscultated. ABDOMEN: Soft, nontender, nondistended. No palpable organomegaly is noted. BACK: Shows spine grossly in the midline. Normal-appearing cervical lordotic curvature. There is slightly increased thoracic kyphosis, some flattening of the lumbar lordotic curvature. Lumbar paraspinous muscles show symmetrical on inspection, on palpation shows some moderate tenderness diffusely throughout the upper, middle and lower distribution of the paraspinous musculature, but without specific trigger points, without radiation of pain. The patient has good rotational motion of the lumbar spine, both laterally as well as extension and flexion without significant difficulty. No tenderness over the spinous processes, sacrum or sacroiliac regions. EXTREMITIES: Lower extremities show deep tendon reflexes 1+ in the patellar and tendo calcaneus tendons. Motor exam is 5 on a scale of 5 with right dorsiflexion, extension, quadriceps and hamstring flexion and 4/5 on the left. Peripheral pulses are 1 posterior tibial. No peripheral edema is noted bilaterally. Lower extremities are warm and dry to touch, equal in color and appearance. Upper extremities show deep tendon reflexes 2+ in the bicep tricep tendons, motor exam strong with turn machine operator strength rated 5 out of 5 as is bicep and tricep flexion. Patient's left shoulder shows significant tenderness with palpation over the acromioclavicular joint as well as anterior aspect of the glenohumeral joint as well as posteriorly over the scapula but without significant radiation. Patient has difficulty with abduction past 45 degrees with significant pain on the left side only and no loss of strength on resistance bilaterally. SKIN: Shows warm and dry, good turgor. No edema. No sores, rashes or bruising throughout. Procedure: Procedure: Options were discussed with the patient. Patient's old chart was reviewed as her current medication regimen updated current review of systems updated today as well. We will proceed with a left intra-articular glenohumeral shoulder joint today with fluoroscopic guidance. Risk were discussed including not limited to bleeding infection possibility of intravascular injection sequelae spread local anesthetic numbness side effects steroid medication exposure fluoroscopy and poor results regarding pain control. Patient understands wishes to proceed. Medication Injected: Med Injected: Patient supine position under sterile prep and drape using C-arm fluoroscopic guidance patient's left shoulder was visualized and using 25-gauge needle 1% lidocaine was used to topically anesthetized area over the glenohumeral joint on the left. Using a 22-gauge Quincke needle with stylette the joint was entered under direct fluoroscopic visualization without difficulty stylet was removed at this time 2 cc of contrast was injected with good intra-articular spread in the shoulder joint without uptake. At this time 3 cc of 0.25% bupivacaine and 20 mg dexamethasone as then injected into the joint. Needle was removed and sterile bandage was applied. Patient tolerated the procedure well and had no com plications. Condition at Discharge: Condition at Discharge: Condition at discharge stable, patient tolerated the procedure well and had no complications. MARK GILBERT MD December 04, 2021 11:43
--- NOTE | 2021-12-04 11:44 | PDOC4 ---
Procedure Note: ICD 10 Code: ICD 10 Code: M2 5.512 M16.12 Procedure Note: Patient was consented for left intra-articular glenohumeral shoulder joint injection. Risks are discussed including but not limited to bleeding infection possibility of intravascular injection sequelae spread local anesthetic numbness side effects steroid medication and poor results regarding pain control. Patient understands wished to proceed. Patient supine position under sterile prep and drape using C-arm fluoroscopic guidance patient's left shoulder was visualized and using 25-gauge needle 1% lidocaine was used to topically anesthetized area over the glenohumeral joint on the left. Using a 22-gauge Quincke needle with stylette the joint was entered under direct fluoroscopic visualization without difficulty stylet was removed at this time 2 cc of contrast was injected with good intra-articular spread in the shoulder joint without uptake. At this time 3 cc of 0.25% bupivacaine and 20 mg dexamethasone as then injected into the joint. Needle was removed and sterile bandage was applied. Patient tolerated the procedure well and had no complications. MARK GILBERT MD December 04, 2021 11:44
== END | disposition home or self-care (01) ==
LOC: PNCL 10:30
PROVIDERS: ATTEND Anesthesiology
DX: M16.12 Unilateral primary osteoarthritis, left hip (principal); M51.16 Intervertebral disc disorders with radiculopathy, lumbar region; M48.061 Spinal stenosis, lumbar region without neurogenic claudication; I10 Essential (primary) hypertension; K21.9 Gastro-esophageal reflux disease without esophagitis; F41.9 Anxiety disorder, unspecified; F32.9 Major depressive disorder, single episode, unspecified; Z98.51 Tubal ligation status; Z98.890 Other specified postprocedural states; Z79.899 Other long term (current) drug therapy
CPT/HCPCS: 20610; 77002; J1100; J3490; Q9965

== ENCOUNTER → 2021-12-18 | Outpatient (CLI) | payer MEDICARE ==
[~2021-12-18] MED LIST changes: -BUPIVACAINE MPF 0.25% 10 ML VIAL. ONE
--- NOTE | 2021-12-18 10:13 | PDOC ---
Progress Note - Pain Clinic Date of Service: DOS: DATE: 12/18/21 TIME: 10:08 Diagnosis: Dx: Lumbar radiculopathy with lumbar degenerative disease lumbar spinal stenosis and lumbar postlaminectomy syndrome History or Present Illness: HPI: Six 6-year-old female returns for follow-up status post left shoulder joint injection with good results but to complain of pain low back and left lower extremity posterior gluteus posterior thigh posterior calf radiating with walking standing changing positions better with sitting or laying down but is waking her from sleep about 4-5 times at night. Patient rates pain as 8 on scale 10 is worse over the past week 6 on average 5 at its least and is a 6 today. Patient scribes aching and tight in the back cramping constant shooting and radiating from her left lower extremity. Patient reports no loss of motor function with significant fatigability left lower extremity with standing and walking. Patient reports no loss of motor function no bowel or bladder incontinence. Physical Exam: VS: Blood pressure is 166/107 pulse 80 respirations 18 temperature 98.9 F height 5 feet 5 inches weight is 176 pounds. PE: PHYSICAL EXAMINATION: GENERAL: The patient is awake, alert, oriented, appropriate, very pleasant in demeanor HEENT: Shows normocephalic, atraumatic. Extraocular movements are intact and symmetrical. Oral cavity: Mucous membranes moist and pink. Dentition is intact. NECK: Shows anterior throat supple without palpable lymphadenopathy noted. Swallow reflex symmetrical. CHEST: Shows normal on inspection. Breath sounds are clear bilaterally, no rales rhonchi or wheezes. HEART: Shows S1, S2 clear. No murmurs auscultated. ABDOMEN: Soft, nontender, nondistended. No palpable organomegaly is noted. BACK: Shows spine grossly in the midline. Normal-appearing cervical lordotic curvature. There is slightly increased thoracic kyphosis, some flattening of the lumbar lordotic curvature with well-healed surgical scarring noted. Lumbar paraspinous muscles show symmetrical on inspection, on palpation shows some moderate tenderness diffusely throughout the upper, middle and lower distribution of the paraspinous manager talent, but without specific trigger points, without radiation of pain. The patient has good rotational motion of the lumbar spine, both laterally as well as extension and flexion without significant difficulty. EXTREMITIES: Lower extremities show deep tendon reflexes 1+ in the patellar and tendo calcaneus tendons. Motor exam is 5 on a scale of 5 with right dorsiflexion, extension, quadriceps and hamstring flexion and 4/5 on the left. Peripheral pulses are 1+ posterior tibial. No peripheral edema is noted bilaterally. Lower extremities are warm and dry. SKIN: Shows warm and dry, good turgor. No edema. No sores, rashes or bruising throughout. Procedure: Procedure: Options discussed with patient. Patient's old chart was reviewed as her current medication regimen updated current review of systems updated today as well. We will proceed with a lumbar epidural steroid injection today with fluoroscopic guidance. Risks were discussed including but not limited to: Bleeding, infection, possibility of epidural hematoma and subsequent neurological compromise, dural puncture, headaches, spinal cord and/or nerve damage, side effects of steroid medication, and poor results regarding pain control. Patient understands and wished to proceed. Patient will return to clinic in approximately 4 weeks for follow-up, was counseled as to return appointment, active level, and side effects to be aware of. Medication Injected: Med Injected: Procedure is lumbar epidural steroid injection under local anesthetic using sterile prep and drape at the L5-S1 level using C-arm fluoroscopic guidance in both AP and lateral views medications injected is 20 mg dexamethasone +10mL preservative-free normal saline and 2 mL contrast- condition at discharge is stable patient tolerated procedure well had no complications. Condition at Discharge: Condition at Discharge: Condition at discharge is stable, patient tolerated the procedure well and had no complications. MARK GILBERT MD December 18, 2021 10:13
--- NOTE | 2021-12-18 10:14 | PDOC4 ---
Procedure Note: ICD 10 Code: ICD 10 Code: M54.17 M51.87 M48.07 M96.1 Procedure Note: Patient was consented for lumbar epidural steroid injection with fluoroscopic guidance. Risks were discussed including but not limited to: Bleeding, infection, possibility of epidural hematoma and subsequent neurological compromise, dural puncture, headaches, spinal cord and/or nerve damage, side effects of steroid medication, and poor results regarding pain control. Patient understands and wished to proceed. Procedure is lumbar epidural steroid injection under local anesthetic using sterile prep and drape at the L5-S1 level using C-arm fluoroscopic guidance in both AP and lateral views medications injected is 20 mg dexamethasone +10mL preservative-free normal saline and 2 mL contrast- condition at discharge is stable patient tolerated procedure well had no complications. MARK GILBERT MD December 18, 2021 10:14
== END | disposition home or self-care (01) ==
LOC: PNCL 08:45
PROVIDERS: ATTEND Anesthesiology
DX: M51.16 Intervertebral disc disorders with radiculopathy, lumbar region (principal); M48.061 Spinal stenosis, lumbar region without neurogenic claudication; M96.1 Postlaminectomy syndrome, not elsewhere classified; I10 Essential (primary) hypertension; K21.9 Gastro-esophageal reflux disease without esophagitis; F41.9 Anxiety disorder, unspecified; F32.9 Major depressive disorder, single episode, unspecified; F17.210 Nicotine dependence, cigarettes, uncomplicated; Z98.51 Tubal ligation status; Z98.890 Other specified postprocedural states; Z79.899 Other long term (current) drug therapy; Z79.82 Long term (current) use of aspirin
CPT/HCPCS: 62323; J1100; Q9965